=== PATIENT | female | born 1970 | race Caucasian/White ===

== ENCOUNTER 2016-11-30 00:03 | Emergency (ER) | payer OTHER ==
--- NOTE | 2016-11-30 00:15 | EDPHY ---
H & P HPI/ROS: This 46-year-old female presents to the emergency department today with complaints of a sore throat for the last 3 days. Her daughter is also in the emergency room today with a sore throat. The patient denies having a fever, chills, nausea, or vomiting. She denies headache but says she has mild generalized abdominal pain. She has not taken anything for her throat pain. It is sharp and she rates at about a 7/10. She is not having any difficulty swallowing or breathing. She does not have a stiff neck or rash. Past Medical/Surgical History: Past medical history denied. Past surgical history includes a cholecystectomy, x2 Family history is significant for father having hypertension Social History: She is with 5 children. She does not smoke, only occasionally drinks alcohol and uses no illicit drugs. Smoking Status: Never smoked Physical Exam: General Appearance: Alert and no distress. Eyes: Pupils equal and round no injection. Mouth: Mucosa moist, posterior oropharynx with moderate erythema and bilateral exudate. Airway patent. Skin: No rashes or lesions. DIFFERENTIAL DIAGNOSIS: After history and physical exam differential diagnosis was considered for viral pharyngitis, strep pharyngitis, mononucleosis unlikely Constitutional: Initial Vital Signs Temperature (C) 98.6 F 11/30/16 00:11 Heart Rate 77 11/30/16 00:11 Respiratory Rate 16 11/30/16 00:11 Blood Pressure 120/76 11/30/16 00:11 O2 Sat (%) 95 11/30/16 00:11 O2 Delivery Mode Room Air Allergies/Adverse Reactions: erythromycin base Allergy (Verified 11/30/16 00:18) Home Medications: Medication Instructions Recorded NK [No Known Home Meds] 11/30/16 Medical Decision Making ED Course/Re-evaluation: The patient was seen and examined, vital signs reviewed. She was given Decadron 10 mg orally for her throat discomfort. Her rapid strep is negative, culture pending. She will follow up with her primary care provider as needed or return to the emergency room sooner if she has any further problems or concerns. - Data Points Laboratory Results: 11/30/16 11/30/16 Unknown 00:00 Group A Strep Screen NEGATIVE (NEGATIVE) Group A Strep DNA Pending Medications Given: Discontinued Medications Dexamethasone (Decadron) 10 mg PO EDNOW ONE Stop: 11/30/16 00:21 Last Admin: 11/30/16 00:25 Dose: 10 mg Departure - Departure Disposition: Home, Routine, Self-Care Clinical Impression: Pharyngitis Condition: Good Instructions: Pharyngitis (ED) Additional Instructions: We will call you if the strep culture turns positive. Recheck if symptoms worsen. Referrals: Patient,NotPresent [Primary Care Provider] - As per Instructions
[2016-11-30 00:19] VITALS: BP 120/76; PULSE 77; RESP 16; TEMP 98.6; O2SAT 95
[2016-11-30] MEDS ORDERED: DEXAMETHASONE 4 MG TAB PO ONE (00:20)
[2016-11-30] MEDS ORDERED: DEXAMETHASONE 4 MG TAB ONE (00:22)
== END 2016-11-30 00:37 | disposition home or self-care (01) ==
LOC: CED 00:03
DX: J02.9 Acute pharyngitis, unspecified (principal)
CPT/HCPCS: 87880-PO